=== PATIENT | female | born 1970 | race American Indian/Alaskan Native ===

== ENCOUNTER 2018-12-20 20:24 | Emergency (ER) | payer MEDICAID, OTHER ==
--- NOTE | 2018-12-20 20:56 | Emergency Department Report ---
Blank Doc - Documentation Documentation: 48 y/o female with slipped and fall at [employer] today about 1200. having right ankle pain and swelling. Ordered: ankle xray
[2018-12-20 20:57] VITALS: BP 155/102
--- NOTE | 2018-12-20 21:57 | XRay Report ---
XR ANKLE 3+V RT CLINICAL INDICATION: Female, 48 years of age. right ankle pain and swelling COMPARISON: None available. FINDINGS: 3 views of the right ankle obtained. Plate and screw fixation of the distal fibula. Surgica l hardware appears intact. Ankle mortise is preserved. There is a 4 mm well-corticated bony fragment adjacent to the medial malleolus compatible for remote avulsive injury. No acute fracture or dislocat ion. Small calcaneal spurs. IMPRESSION: No acute fracture. Prior plate and screw fixation of the distal fibula. This document is electronically signed by Adela Richards DO., December 20 2018 09:55:19 PM ET
--- NOTE | 2018-12-20 22:12 | Emergency Department Report ---
ED Lower Extremity HPI - General Chief Complaint: Extremity Injury, Lower Stated Complaint: RIGHT ANKLE AND HIP PAIN Source: patient Mode of arrival: Ambulatory Limitations: No Limitations - History of Present Illness Initial Comments: 48 y/o female with slipped and fell at [employer] store today about 1200. Now having right ankle pain and swelling. She reports she's had a history of surgery on her right ankle she has hardware plates and screws. 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 - Related Data Home Medications Medication Instructions Recorded Confirmed Last Taken Gabapentin [Neurontin] 300 mg PO BID PRN 07/02/17 07/02/17 1 Week Ago ~06/25/17 Oxycodone HCl/Acetaminophen 7.5 mg PO Q6HR PRN 07/02/17 07/02/17 06/30/17 09:00 [Percocet 7.5/325 mg] Potassium Chloride [K-Dur] 10 meq PO BID 07/02/17 07/02/17 06/30/17 09:00 Previous Rx's Medication Instructions Recorded Last Taken Type Ibuprofen [Motrin 600 MG tab] 600 mg PO Q8H PRN #21 tablet 12/20/18 Unknown Rx Allergies Allergy/AdvReac Type Severity Reaction Status Date / Time No Known Allergies Allergy Verified 07/01/17 10:51 ED Review of Systems ROS: Stated complaint: RIGHT ANKLE AND HIP PAIN Other details as noted in HPI ED Past Medical Hx - Past Medical History Hx Hypertension: No Hx Deep Vein Thrombosis: Yes (2012) Hx Pulmonary Embolism: Yes (2012) Hx Sickle Cell Disease: Yes (trait) Hx HIV: No Additional medical history: Anemia - Surgical History Past Surgical History?: Yes Additional Surgical History: Gastric Sleeve, Right ankle surgery, Tubal Ligation, - Social History Smoking Status: Current Every Day Smoker Substance Use Type: None - Medications Home Medications: Home Medications Medication Instructions Recorded Confirmed Last Taken Type Gabapentin [Neurontin] 300 mg PO BID PRN 07/02/17 07/02/17 1 Week Ago History ~06/25/17 Oxycodone HCl/Acetaminophen 7.5 mg PO Q6HR PRN 07/02/17 07/02/17 06/30/17 09:00 History [Percocet 7.5/325 mg] Potassium Chloride [K-Dur] 10 meq PO BID 07/02/17 07/02/1717 09:00 History Ibuprofen [Motrin 600 MG tab] 600 mg PO Q8H PRN #21 tablet 12/20/18 Unknown Rx ED Physical Exam - General Limitations: No Limitations General appearance: alert, in no apparent distress - Head Head exam: Present: atraumatic, normocephalic - Eye Eye exam: Present: normal appearance - ENT ENT exam: Present: mucous membranes moist - Neck Neck exam: Present: normal inspection - Cardiovascular Cardiovascular Exam: Present: regular rate, normal rhythm. Absent: systolic murmur, diastolic murmur, rubs, gallop - Expanded Upper Extremity Exam Left Hand Wrist exam: Present: other (cystlike structure on the left wrists nontender to palpate not erythematous) - Expanded Lower Extremity Exam Right Hip exam: Present: full ROM, tenderness. Absent: swelling, abrasion, laceration, ecchymosis, deformity Knee exam: Present: normal inspection, full ROM Lower Leg exam: Present: normal inspection, full ROM Ankle exam: Present: full ROM (baseline, felt hardware on lateral ankle.), tenderness. Absent: swelling, ecchymosis, deformity, crepidus, dislocation, erythema Gait: Positive: observed and limited by pain - Back Exam Back exam: Present: normal inspection - Neurological Exam Neurological exam: Present: alert, oriented X3 - Psychiatric Psychiatric exam: Present: normal affect, normal mood - Skin Skin exam: Present: warm, dry, intact, normal color. Absent: rash ED Course Vital Signs 12/20/18 12/20/18 20:41 20:50 Temperature 98.4 F 98.4 F Pulse Rate 94 H 92 H Respiratory 18 18 Rate Blood Pressure 162/126 155/102 O2 Sat by Pulse 99 99 Oximetry ED Lower Extremity MDM - Radiology Data Radiology results: report reviewed Patient: MAXIMO RODRIGES MR#: [id number] : 1970 Acct:[id number] Age/Sex: 48 / F ADM Date: 12/20/18 Loc: ED Attending Dr: Ordering Physician: SMITA ANGEL Date of Service: 12/20/18 Procedure(s): XR ankle 3+V RT Accession Number(s): [id number] cc: SMITA ANGEL Fluoro Time In Minutes: XR ANKLE 3+V RT CLINICAL INDICATION: Female, 48 years of age. right ankle pain and swelling COMPARISON: None available. FINDINGS: 3 views of the right ankle obtained. Plate and screw fixation of the distal fibula. Surgical hardware appears intact. Ankle mortise is preserved. There is a 4 mm well-corticated bony fragment adjacent to the medial malleolus compatible for remote avulsive injury. No acute fracture or dislocation. Small calcaneal spurs. IMPRESSION: No acute fracture. Prior plate and screw fixation of the distal fibula. This document is electronically signed by Adela Richards DO., December 20 2018 09:55:19 PM ET Transcribed By: LMA Dictated By: AMADEO RICHARDS MD Electronically Authenticated By: AMADEO RICHARDS MD Signed Date/Time: 12/20/182156 DD/ 46 TD/TT: 12/20/182147 - Medical Decision Making Patient has been evaluated by this provider and a ACC. Ibuprofen 600 mg given for pain management. X-ray of right ankle shows no acute fractures or dislocation. Left wrists ganglionic cysts. We'll refer patient to hand specialist. She'll be discharged home and ibuprofen. Critical care attestation.: If time is entered above; I have spent that time in minutes in the direct care of this critically ill patient, excluding procedure time. ED Disposition Clinical Impression: Ganglion cyst of dorsum of left wrist Right ankle sprain Qualifiers: Encounter type: initial encounter Involved ligament of ankle: unspecified ligament Qualified Code(s): S93.401A - Sprain of unspecified ligament of right ankle, initial encounter Disposition: TO HOME OR SELFCARE Is pt being admited?: No Does the pt Need Aspirin: No Condition: Stable Instructions: Ankle Sprain (ED) Additional Instructions: Pain medication as needed. Follow-up with the hand specialist I have listed one below for your convenience. Prescriptions: Ibuprofen [Motrin 600 MG tab] 600 mg PO Q8H PRN #21 tablet PRN Reason: Pain Referrals: ENDER DODSON MD [Staff Physician] - 3-5 Days
[2018-12-20] MEDS ORDERED: IBUPROFEN PO ONE (22:26)
== END 2018-12-20 22:43 | disposition home or self-care (01) ==
LOC: ED 20:24
DX: S93.401A Sprain of unspecified ligament of right ankle, initial encounter (principal); M67.432 Ganglion, left wrist; D64.9 Anemia, unspecified; D57.3 Sickle-cell trait; F17.200 Nicotine dependence, unspecified, uncomplicated; Z98.51 Tubal ligation status; Z86.711 Personal history of pulmonary embolism; Z86.718 Personal history of other venous thrombosis and embolism